=== PATIENT | female | born 1955 | race African-American/Black ===

== ENCOUNTER → 2025-03-28 | Emergency (ER) | payer OTHER ==
[~2025-03-28] VITALS: Ht 170.2 cm; Wt 63.6 kg
[~2025-03-28] MED LIST: LORazepam 2 MG/ML VIAL ONE; METF-1211 PO
[2025-03-28 07:17] VITALS: TEMP 97
[2025-03-28 08:07] LABS: CALCIUM, TOTAL 9.2 mg/dL (8.8-10.5); CREATININE 1.19 mg/dL (0.60-1.30); GLOMERULAR FILTR. RATE CALC 54 mL/min (>60); GLUCOSE,RANDOM 111 mg/dL (70-110); SODIUM SERUM 144 mmol/L (136-145); UREA NITROGEN, BLOOD 26 mg/dL (7-18)
[2025-03-28 08:09] LABS: PLATELET COUNT (AUTO) 238 K/uL (150-450); RED BLOOD CELL COUNT(AUTO) 2.97 MIL/uL (4.00-5.20); RED CELL DISTRIBUTION WIDTH 13.8 % (11.5-14.5); WHITE BLOOD COUNT (AUTO) 5.6 K/uL (4.5-11.0)
[2025-03-28 08:13] LABS: ASPARTATE AMINOTRANSFERASE 35.0 U/L (15-37); TOTAL PROTEIN, SERUM 8.4 g/dL (6.4-8.2)
[2025-03-28 08:15] LABS: TROPONIN I-HIGH SENSITIVITY 6 ng/L (<51)
[2025-03-28 08:17] LABS: RBC MORPHOLOGY COMMENT ABNORMAL RBC MORPH
[2025-03-28 08:54] LABS: ALCOHOL, BLOOD (SERUM) 417.0 mg/dL (0-10)
[2025-03-28] MEDS: LORazepam 2 MG/ML VIAL IM ONE (10:34)
[2025-03-28 11:00] VITALS: BP 112/63; PULSE 67; RESP 18; O2SAT 100
== END | disposition still patient (30) ==
LOC: EMS 07:06
DX: G93.49 Other encephalopathy (principal); G93.41 Metabolic encephalopathy; E11.9 Type 2 diabetes mellitus without complications; F10.129 Alcohol abuse with intoxication, unspecified; R29.6 Repeated falls; R53.1 Weakness; R41.82 Altered mental status, unspecified; Z87.891 Personal history of nicotine dependence; Z79.899 Other long term (current) drug therapy; W18.11XA Fall from or off toilet without subsequent striking against object, initial encounter; Y90.8 Blood alcohol level of 240 mg/100 ml or more
CPT/HCPCS: 99291; 80048; 80076; 83690; 84484; 85025; 36415; 96372; G0480; J1200; J1630; J2060